=== PATIENT | male | born 1955 | race African-American/Black ===

== ENCOUNTER 2022-04-28 01:08 | Inpatient (IN) | payer MEDICARE, MEDICAID ==
[~2022-04-28] VITALS: Ht 180.3 cm; Wt 114.8 kg
[2022-04-28 05:09] LABS: BASOPHILS % 1.3 % (0.0-2.0); EOSINOPHILS % 6.3 % (0.0-5.0); HEMATOCRIT. 28.3 % (42.0-52.0); HEMOGLOBIN. 9.5 g/dL (14.0-18.0); LYMPHOCYTES % 16.2 % (20.0-50.0); MEAN CORPUSCULAR HEMOGLOBIN 29.2 pg (28.0-32.0); MEAN CORPUSCULAR VOLUME 87.1 fL (80.0-94.0); MEAN PLATELET VOLUME 8.1 fl (7.4-10.4); MONOCYTES % 6.6 % (2.0-8.0); NEUTROPHILS % 69.6 % (40.0-76.0); PLATELET 350 x1000/uL (130-400); RED BLOOD CELL COUNT 3.25 mill/uL (4.7-6.1); RED CELL DISTRIBUTION WIDTH 17.3 % (11.6-14.6)
[2022-04-28 05:16] LABS: INR 1.1; PROTHROMBIN TIME 12.1 sec (9.6-11.0)
[2022-04-28 05:18] LABS: CHLORIDE 94 mEq/L (98-107)
[2022-04-28] MEDS ORDERED: CLONIDINE 0.1MG TABLET PO PRN (10:15)
[2022-04-28] MEDS ORDERED: MAGNESIUM/ALUMINUM HYDROXIDE/SIMETHICONE 30ML UDC PO PRN (10:15)
[2022-04-28] MEDS ORDERED: DEXTROSE 50% WATER 50ML SYRINGE IV PRN ×2 (10:15)
[2022-04-28] MEDS ORDERED: ACETAMINOPHEN 325MG TABLET PO PRN (10:15)
[2022-04-28] MEDS ORDERED: ONDANSETRON HCL 4MG/2ML INJ IV PRN (10:15)
[2022-04-28] MEDS ORDERED: HYDROCODONE/ACETAMINOPHEN 5/325MG TABLET PO PRN (10:15)
[2022-04-28 10:45] VITALS: BP 112/73
[2022-04-28] MEDS ORDERED: NALOXONE HCL 0.4MG/ML VIAL IV PRN (10:45)
[2022-04-28] MEDS ORDERED: QUET25TA MT (11:37)
[2022-04-28] MEDS ORDERED: ARIP5TAB58 PO (11:37)
[2022-04-28] MEDS ORDERED: ATOR40TA70 MT (11:37)
[2022-04-28] MEDS ORDERED: LISI40TA13 PO (11:37)
[2022-04-28] MEDS ORDERED: GABA-529 PO (11:37)
[2022-04-28] MEDS ORDERED: METF500T60 PO (11:37)
[2022-04-28] MEDS ORDERED: TOPUD MT (11:37)
[2022-04-28] MEDS ORDERED: BACL-141 PO (11:37)
[2022-04-28 12:00] VITALS: BP 112/73
[2022-04-28] MEDS: ENOXAPARIN 30MG/0.3ML SYR SUBCUT SCH ×2 (12:05→21:27)
[2022-04-28] MEDS: BLOOD SUGAR DIAGNOSTIC STRIP TEST SCH ×3 (12:23→21:39)
[2022-04-28] MEDS: INSULIN LISPRO 100 UNITS/ML SUBCUT SCH ×3 (12:23→21:00)
[2022-04-28 13:43] VITALS: BP 112/73
[2022-04-28 16:00] VITALS: BP 125/93
[2022-04-28 21:00] VITALS: BP 137/88
[2022-04-28] MEDS: DEXT 5%/0.45% NACL 1000ML 1,000 ML IV SCH (21:44)
[2022-04-29 00:55] VITALS: BP 125/89
[2022-04-29 04:00] VITALS: BP 122/79
[2022-04-29] MEDS: BLOOD SUGAR DIAGNOSTIC STRIP TEST SCH ×4 (05:15→21:34)
[2022-04-29 05:24] LABS: INR 1.2; PROTHROMBIN TIME 12.3 sec (9.6-11.0)
[2022-04-29 06:24] LABS: BASOPHILS % 0.7 % (0.0-2.0); EOSINOPHILS % 5.5 % (0.0-5.0); HEMATOCRIT. 26.5 % (42.0-52.0); HEMOGLOBIN. 8.9 g/dL (14.0-18.0); LYMPHOCYTES % 22.9 % (20.0-50.0); MEAN CORPUSCULAR HEMOGLOBIN 28.9 pg (28.0-32.0); MEAN CORPUSCULAR VOLUME 86.2 fL (80.0-94.0); MEAN PLATELET VOLUME 8.9 fl (7.4-10.4); MONOCYTES % 9.4 % (2.0-8.0); NEUTROPHILS % 61.5 % (40.0-76.0); PLATELET 321 x1000/uL (130-400); RED BLOOD CELL COUNT 3.07 mill/uL (4.7-6.1); RED CELL DISTRIBUTION WIDTH 17.3 % (11.6-14.6)
[2022-04-29 08:00] VITALS: BP 132/90
[2022-04-29] MEDS: INSULIN LISPRO 100 UNITS/ML SUBCUT SCH ×3 (08:10→21:00)
[2022-04-29 08:34] LABS: CHLORIDE 99 mEq/L (98-107)
[2022-04-29] MEDS: PANTOPRAZOLE SODIUM 40 MG/VIAL IV SCH (08:34)
[2022-04-29] MEDS: ENOXAPARIN 30MG/0.3ML SYR SUBCUT SCH ×2 (09:00→21:33)
[2022-04-29 12:00] VITALS: BP 137/77
[2022-04-29] MEDS: MENTHOL/LANOLIN/CALAMINE/ZN OX OINT 71GM TOP SCH ×2 (12:00→16:42)
[2022-04-29] MEDS ORDERED: DIATR MEGLU/DIATRIZOATE SOLN 30ML PO SCH (15:45)
[2022-04-29 16:00] VITALS: BP 139/96
[2022-04-29] MEDS: DEXT 5%/0.45% NACL 1000ML 1,000 ML IV SCH (16:42)
[2022-04-29 20:00] VITALS: BP 148/66
[2022-04-30] VITALS: BP 134/78
[2022-04-30 03:29] LABS: BASOPHILS % 0.7 % (0.0-2.0); EOSINOPHILS % 12.6 % (0.0-5.0); HEMATOCRIT. 26.7 % (42.0-52.0); HEMOGLOBIN. 9.2 g/dL (14.0-18.0); LYMPHOCYTES % 27.1 % (20.0-50.0); MEAN CORPUSCULAR HEMOGLOBIN 29.6 pg (28.0-32.0); MEAN CORPUSCULAR VOLUME 85.7 fL (80.0-94.0); MEAN PLATELET VOLUME 8.2 fl (7.4-10.4); MONOCYTES % 9.9 % (2.0-8.0); NEUTROPHILS % 49.7 % (40.0-76.0); PLATELET 293 x1000/uL (130-400); RED BLOOD CELL COUNT 3.12 mill/uL (4.7-6.1); RED CELL DISTRIBUTION WIDTH 17.3 % (11.6-14.6)
[2022-04-30 03:46] LABS: INR 1.2; PROTHROMBIN TIME 12.3 sec (9.6-11.0)
[2022-04-30 04:00] VITALS: BP 138/80
[2022-04-30 04:19] LABS: CHLORIDE 98 mEq/L (98-107)
[2022-04-30] MEDS: DEXT 5%/0.45% NACL 1000ML 1,000 ML IV SCH ×2 (06:05→17:30)
[2022-04-30] MEDS: INSULIN LISPRO 100 UNITS/ML SUBCUT SCH ×4 (06:05→20:28)
[2022-04-30] MEDS: BLOOD SUGAR DIAGNOSTIC STRIP TEST SCH ×4 (06:05→20:28)
[2022-04-30 08:00] VITALS: BP 151/86
[2022-04-30] MEDS: PANTOPRAZOLE SODIUM 40 MG/VIAL IV SCH (08:38)
[2022-04-30] MEDS: MENTHOL/LANOLIN/CALAMINE/ZN OX OINT 71GM TOP SCH ×2 (08:39→17:29)
[2022-04-30] MEDS: ENOXAPARIN 30MG/0.3ML SYR SUBCUT SCH ×2 (09:00→20:28)
[2022-04-30] MEDS ORDERED: PROPOFOL 200MG/20ML VIAL IV ONE (10:34)
[2022-04-30] MEDS ORDERED: DEXAMETHASONE 4MG/ML 1ML VIAL ONE (10:34)
[2022-04-30] MEDS ORDERED: ONDANSETRON HCL 4MG/2ML INJ ONE (10:34)
[2022-04-30] MEDS ORDERED: MIDAZOLAM HCL 2 MG/2 ML VIAL ONE (10:36)
[2022-04-30] MEDS ORDERED: FENTANYL CITRATE/PF 50MCG/ML 2ML VIAL ONE (10:56)
[2022-04-30] MEDS ORDERED: CEFAZOLIN 1000MG PREMIX 50 ML IV NR (11:00)
[2022-04-30 15:58] VITALS: BP 118/85
[2022-04-30 20:00] VITALS: BP 118/88
[2022-05-01] VITALS: BP 114/81
[2022-05-01 04:00] VITALS: BP 128/78
[2022-05-01] MEDS: METOCLOPRAMIDE HCL 10MG/2ML VIAL IV SCH ×4 (05:43→23:29)
[2022-05-01] MEDS: DEXT 5%/0.45% NACL 1000ML 1,000 ML IV SCH ×2 (05:52→20:38)
[2022-05-01] MEDS: BLOOD SUGAR DIAGNOSTIC STRIP TEST SCH ×4 (07:01→20:38)
[2022-05-01] MEDS: INSULIN LISPRO 100 UNITS/ML SUBCUT SCH ×4 (07:28→20:38)
[2022-05-01 08:00] VITALS: BP 108/67
[2022-05-01] MEDS: PANTOPRAZOLE SODIUM 40 MG/VIAL IV SCH (08:25)
[2022-05-01] MEDS: ENOXAPARIN 30MG/0.3ML SYR SUBCUT SCH ×2 (08:25→20:38)
[2022-05-01] MEDS: MENTHOL/LANOLIN/CALAMINE/ZN OX OINT 71GM TOP SCH ×2 (08:25→17:11)
[2022-05-01 12:00] VITALS: BP 118/82
[2022-05-01 16:00] VITALS: BP 138/85
[2022-05-01 20:33] VITALS: BP 123/75
[2022-05-02] VITALS (8 sets, daily range): BP systolic 130–149; BP diastolic 79–94
[2022-05-02] MEDS: METOCLOPRAMIDE HCL 10MG/2ML VIAL IV SCH ×2 (05:17→11:34)
[2022-05-02] MEDS: BLOOD SUGAR DIAGNOSTIC STRIP TEST SCH ×4 (06:44→21:31)
[2022-05-02 06:59] LABS: BASOPHILS % 0.7 % (0.0-2.0); EOSINOPHILS % 7.5 % (0.0-5.0); HEMATOCRIT. 26.3 % (42.0-52.0); HEMOGLOBIN. 8.6 g/dL (14.0-18.0); LYMPHOCYTES % 30.7 % (20.0-50.0); MEAN CORPUSCULAR HEMOGLOBIN 28.8 pg (28.0-32.0); MEAN PLATELET VOLUME 8.9 fl (7.4-10.4); MONOCYTES % 9.6 % (2.0-8.0); NEUTROPHILS % 51.5 % (40.0-76.0); PLATELET 308 x1000/uL (130-400); RED BLOOD CELL COUNT 2.99 mill/uL (4.7-6.1); RED CELL DISTRIBUTION WIDTH 16.9 % (11.6-14.6)
[2022-05-02] MEDS: INSULIN LISPRO 100 UNITS/ML SUBCUT SCH ×4 (07:46→21:00)
[2022-05-02] MEDS: PANTOPRAZOLE SODIUM 40 MG/VIAL IV SCH (08:36)
[2022-05-02] MEDS: MENTHOL/LANOLIN/CALAMINE/ZN OX OINT 71GM TOP SCH ×2 (08:38→17:26)
[2022-05-02] MEDS: ENOXAPARIN 30MG/0.3ML SYR SUBCUT SCH ×2 (08:38→21:33)
[2022-05-02 09:32] LABS: CHLORIDE 103 mEq/L (98-107)
[2022-05-02] MEDS: DEXT 5%/0.45% NACL 1000ML 1,000 ML IV SCH ×2 (10:34→23:38)
[2022-05-03 04:50] VITALS: BP 135/84
[2022-05-03] MEDS: BLOOD SUGAR DIAGNOSTIC STRIP TEST SCH ×4 (06:20→20:21)
[2022-05-03] MEDS: INSULIN LISPRO 100 UNITS/ML SUBCUT SCH ×4 (07:48→20:21)
[2022-05-03 08:00] VITALS: BP 137/67
[2022-05-03] MEDS: MENTHOL/LANOLIN/CALAMINE/ZN OX OINT 71GM TOP SCH ×2 (08:58→16:57)
[2022-05-03] MEDS: LACTOBACILLUS GG CAPSULE PO SCH (08:59)
[2022-05-03] MEDS: ENOXAPARIN 30MG/0.3ML SYR SUBCUT SCH (08:59)
[2022-05-03 09:26] LABS: CHLORIDE 106 mEq/L (98-107)
[2022-05-03 11:57] VITALS: BP 133/93
[2022-05-03 12:56] LABS: HEMATOCRIT. 27.9 % (42.0-52.0); HEMOGLOBIN. 9.1 g/dL (14.0-18.0); MEAN CORPUSCULAR HEMOGLOBIN 28.7 pg (28.0-32.0); MEAN CORPUSCULAR VOLUME 88.3 fL (80.0-94.0); MEAN PLATELET VOLUME 8.7 fl (7.4-10.4); PLATELET 291 x1000/uL (130-400); RED BLOOD CELL COUNT 3.16 mill/uL (4.7-6.1); RED CELL DISTRIBUTION WIDTH 17.1 % (11.6-14.6)
[2022-05-03] MEDS: DEXT 5%/0.45% NACL 1000ML 1,000 ML IV SCH (13:19)
[2022-05-03 16:00] VITALS: BP 144/75
[2022-05-03 20:00] VITALS: BP 136/98
[2022-05-04 00:05] VITALS: BP 132/90
[2022-05-04] MEDS: DEXT 5%/0.45% NACL 1000ML 1,000 ML IV SCH ×2 (01:25→15:21)
[2022-05-04 04:00] VITALS: BP 144/97
[2022-05-04] MEDS: BLOOD SUGAR DIAGNOSTIC STRIP TEST SCH ×4 (05:28→20:36)
[2022-05-04] MEDS: INSULIN LISPRO 100 UNITS/ML SUBCUT SCH ×4 (05:28→20:36)
[2022-05-04 07:56] LABS: PLATELET ESTIMATE NORMAL
[2022-05-04] MEDS: ENOXAPARIN 40MG/0.4ML SYR SUBCUT SCH (08:37)
[2022-05-04] MEDS: MENTHOL/LANOLIN/CALAMINE/ZN OX OINT 71GM TOP SCH ×2 (08:37→16:33)
[2022-05-04] MEDS: LACTOBACILLUS GG CAPSULE PO SCH (08:37)
[2022-05-04 12:00] VITALS: BP 159/98
[2022-05-04 16:00] VITALS: BP 159/98
[2022-05-04 20:00] VITALS: BP 130/70
[2022-05-05 00:05] VITALS: BP 126/77
[2022-05-05] MEDS: DEXT 5%/0.45% NACL 1000ML 1,000 ML IV SCH ×2 (01:50→16:46)
[2022-05-05 04:00] VITALS: BP 141/89
[2022-05-05] MEDS: INSULIN LISPRO 100 UNITS/ML SUBCUT SCH ×4 (05:26→20:37)
[2022-05-05] MEDS: BLOOD SUGAR DIAGNOSTIC STRIP TEST SCH ×4 (05:26→20:37)
[2022-05-05 08:00] VITALS: BP 136/99
[2022-05-05] MEDS: ENOXAPARIN 40MG/0.4ML SYR SUBCUT SCH (08:01)
[2022-05-05] MEDS: MENTHOL/LANOLIN/CALAMINE/ZN OX OINT 71GM TOP SCH ×2 (08:01→16:47)
[2022-05-05] MEDS: LACTOBACILLUS GG CAPSULE PO SCH (08:01)
[2022-05-05 12:00] VITALS: BP 149/101
[2022-05-05 16:00] VITALS: BP 148/98
[2022-05-05 20:00] VITALS: BP 126/91
[2022-05-06 00:05] VITALS: BP 138/93
[2022-05-06 04:00] VITALS: BP 137/94
[2022-05-06] MEDS: INSULIN LISPRO 100 UNITS/ML SUBCUT SCH ×4 (05:22→21:00)
[2022-05-06] MEDS: BLOOD SUGAR DIAGNOSTIC STRIP TEST SCH ×4 (05:22→21:29)
[2022-05-06 08:00] VITALS: BP 119/75
[2022-05-06] MEDS: LACTOBACILLUS GG CAPSULE PO SCH (09:03)
[2022-05-06] MEDS: MENTHOL/LANOLIN/CALAMINE/ZN OX OINT 71GM TOP SCH ×2 (09:03→16:55)
[2022-05-06] MEDS: ENOXAPARIN 40MG/0.4ML SYR SUBCUT SCH (09:03)
[2022-05-06] MEDS: DEXT 5%/0.45% NACL 1000ML 1,000 ML IV SCH (09:04)
[2022-05-06 12:00] VITALS: BP 137/85
[2022-05-06 16:00] VITALS: BP 136/86
[2022-05-06 20:47] VITALS: BP 149/83
[2022-05-07 00:15] VITALS: BP 152/81
[2022-05-07] MEDS: DEXT 5%/0.45% NACL 1000ML 1,000 ML IV SCH ×2 (02:35→17:58)
[2022-05-07 04:00] VITALS: BP 163/94
[2022-05-07] MEDS: BLOOD SUGAR DIAGNOSTIC STRIP TEST SCH ×4 (06:01→21:44)
[2022-05-07] MEDS: INSULIN LISPRO 100 UNITS/ML SUBCUT SCH ×4 (06:01→21:00)
[2022-05-07 08:00] VITALS: BP 151/95
[2022-05-07] MEDS: LACTOBACILLUS GG CAPSULE PO SCH (09:15)
[2022-05-07] MEDS: MENTHOL/LANOLIN/CALAMINE/ZN OX OINT 71GM TOP SCH ×2 (09:15→17:55)
[2022-05-07] MEDS: ENOXAPARIN 40MG/0.4ML SYR SUBCUT SCH (09:15)
[2022-05-07 11:53] LABS: HEMATOCRIT. 26.8 % (42.0-52.0); MEAN CORPUSCULAR HEMOGLOBIN 29.4 pg (28.0-32.0); MEAN CORPUSCULAR VOLUME 87.7 fL (80.0-94.0); MEAN PLATELET VOLUME 9.5 fl (7.4-10.4); PLATELET 271 x1000/uL (130-400); RED BLOOD CELL COUNT 3.06 mill/uL (4.7-6.1); RED CELL DISTRIBUTION WIDTH 17.4 % (11.6-14.6)
[2022-05-07 12:00] VITALS: BP 151/89
[2022-05-07 12:37] LABS: CHLORIDE 100 mEq/L (98-107)
[2022-05-07 12:50] LABS: PLATELET ESTIMATE NORMAL
[2022-05-07 16:00] VITALS: BP 168/107
[2022-05-07 20:15] VITALS: BP 160/100
[2022-05-08 00:16] VITALS: BP 143/95
[2022-05-08 04:00] VITALS: BP 152/99
[2022-05-08] MEDS: BLOOD SUGAR DIAGNOSTIC STRIP TEST SCH ×4 (06:46→21:00)
[2022-05-08] MEDS: INSULIN LISPRO 100 UNITS/ML SUBCUT SCH ×5 (06:46→21:00)
[2022-05-08 07:23] LABS: HEMATOCRIT. 28.1 % (42.0-52.0); HEMOGLOBIN. 9.2 g/dL (14.0-18.0); MEAN CORPUSCULAR VOLUME 88.1 fL (80.0-94.0); MEAN PLATELET VOLUME 9.5 fl (7.4-10.4); PLATELET 272 x1000/uL (130-400); RED BLOOD CELL COUNT 3.18 mill/uL (4.7-6.1); RED CELL DISTRIBUTION WIDTH 17.4 % (11.6-14.6)
[2022-05-08 08:00] VITALS: BP 155/97
[2022-05-08] MEDS: DEXT 5%/0.45% NACL 1000ML 1,000 ML IV SCH ×2 (08:10→15:00)
[2022-05-08 08:58] LABS: CHLORIDE 102 mEq/L (98-107)
[2022-05-08] MEDS: LACTOBACILLUS GG CAPSULE PO SCH (09:48)
[2022-05-08] MEDS: ENOXAPARIN 40MG/0.4ML SYR SUBCUT SCH (09:49)
[2022-05-08] MEDS: MENTHOL/LANOLIN/CALAMINE/ZN OX OINT 71GM TOP SCH ×2 (09:49→17:00)
[2022-05-08 12:00] VITALS: BP 138/78
[2022-05-08 16:00] VITALS: BP 148/97
[2022-05-08 18:20] LABS: PLATELET ESTIMATE NORMAL
[2022-05-08 20:00] VITALS: BP 139/93
[2022-05-09] VITALS: BP 143/101
[2022-05-09] MEDS: DEXT 5%/0.45% NACL 1000ML 1,000 ML IV SCH ×2 (02:14→21:00)
[2022-05-09 04:00] VITALS: BP 152/99
[2022-05-09] MEDS: BLOOD SUGAR DIAGNOSTIC STRIP TEST SCH ×4 (07:40→20:35)
[2022-05-09 08:00] VITALS: BP 139/90
[2022-05-09] MEDS: INSULIN LISPRO 100 UNITS/ML SUBCUT SCH ×4 (08:10→20:35)
[2022-05-09] MEDS: MENTHOL/LANOLIN/CALAMINE/ZN OX OINT 71GM TOP SCH ×2 (09:00→17:00)
[2022-05-09] MEDS: ENOXAPARIN 40MG/0.4ML SYR SUBCUT SCH (10:22)
[2022-05-09] MEDS: LACTOBACILLUS GG CAPSULE PO SCH (10:22)
[2022-05-09 12:00] VITALS: BP 143/92
[2022-05-09 16:00] VITALS: BP 139/91
[2022-05-09 20:00] VITALS: BP 144/101
[2022-05-10] VITALS: BP 135/79
[2022-05-10 04:00] VITALS: BP 144/99
[2022-05-10] MEDS: DEXT 5%/0.45% NACL 1000ML 1,000 ML IV SCH (04:37)
[2022-05-10] MEDS: BLOOD SUGAR DIAGNOSTIC STRIP TEST SCH ×2 (07:46→12:42)
[2022-05-10 08:00] VITALS: BP 133/91
[2022-05-10] MEDS: INSULIN LISPRO 100 UNITS/ML SUBCUT SCH ×2 (08:10→12:43)
[2022-05-10] MEDS: ENOXAPARIN 40MG/0.4ML SYR SUBCUT SCH (08:45)
[2022-05-10] MEDS: LACTOBACILLUS GG CAPSULE PO SCH (08:46)
[2022-05-10] MEDS: MENTHOL/LANOLIN/CALAMINE/ZN OX OINT 71GM TOP SCH (08:46)
[2022-05-10 12:00] VITALS: BP 141/91
[2022-05-10 14:19] VITALS: BP 141/91
== END 2022-05-10 16:45 | DRG 919 ==
LOC: ER 01:08 → 7WST 05:14 → EDBEDREQ 05:18 → ENRESERV 07:00
PROVIDERS: ADMIT Family Medicine Adult Medicine; ATTEND Family Medicine Adult Medicine
PROC: 0D20XUZ Change Feeding Device in Upper Intestinal Tract, External Approach (ICD-10-PCS; principal; 2022-04-30)
PROC: 0DB78ZX Excision of Stomach, Pylorus, Via Natural or Artificial Opening Endoscopic, Diagnostic (ICD-10-PCS; 2022-04-30)
DX: T85.528A Displacement of other gastrointestinal prosthetic devices, implants and grafts, initial encounter (principal); N17.0 Acute kidney failure with tubular necrosis; E44.1 Mild protein-calorie malnutrition; E87.1 Hypo-osmolality and hyponatremia; R65.10 Systemic inflammatory response syndrome (SIRS) of non-infectious origin without acute organ dysfunction; N17.9 Acute kidney failure, unspecified; Y83.9 Surgical procedure, unspecified as the cause of abnormal reaction of the patient, or of later complication, without mention of misadventure at the time of the procedure; R13.12 Dysphagia, oropharyngeal phase; D72.829 Elevated white blood cell count, unspecified; K29.70 Gastritis, unspecified, without bleeding; I11.0 Hypertensive heart disease with heart failure; E11.9 Type 2 diabetes mellitus without complications; F03.90 Unspecified dementia, unspecified severity, without behavioral disturbance, psychotic disturbance, mood disturbance, and anxiety; I50.9 Heart failure, unspecified; G89.29 Other chronic pain; M10.9 Gout, unspecified; R19.7 Diarrhea, unspecified; M54.9 Dorsalgia, unspecified; Z20.822 Contact with and (suspected) exposure to COVID-19; Z79.899 Other long term (current) drug therapy; Z68.35 Body mass index [BMI] 35.0-35.9, adult
CPT/HCPCS: 36415; 74176; 76700; 80048; 80053; 82962; 83036; 84145; 85025; 87015; 87045; 87426; 87427; 87449; 87493; 88305; 89055; 93970; 99285; A6261; C9113; J0690; J1100; J1650; J1815; J2250; J2405; J2704; J2765; J3010; Q9963; A4315

== ENCOUNTER 2022-06-04 14:47 | Inpatient (IN) | payer MEDICARE, MEDICAID ==
[~2022-06-04] VITALS: Ht 175.3 cm; Wt 99.8 kg
[~2022-06-04 14:47] MED LIST: ARIP5TAB58 PO; ATOR40TA70 MT; BACL-141 PO; GABA-529 PO; LISI40TA13 PO; METF500T60 PO; QUET25TA MT; TOPUD MT
[2022-06-04] MEDS ORDERED: aspirin (14:50)
[2022-06-04] MEDS ORDERED: insulin (14:50)
[2022-06-04] MEDS ORDERED: SODIUM CHLORIDE 0.9% 1000ML BAG (SEPSIS BOLUS) IV ONE (15:15)
[2022-06-04 16:25] LABS: BASOPHILS % 0.5 % (0.0-2.0); EOSINOPHILS % 7.2 % (0.0-5.0); HEMATOCRIT. 33.6 % (42.0-52.0); HEMOGLOBIN. 10.6 g/dL (14.0-18.0); LYMPHOCYTES % 21.5 % (20.0-50.0); MEAN CORPUSCULAR HEMOGLOBIN 27.9 pg (28.0-32.0); MEAN CORPUSCULAR VOLUME 88.9 fL (80.0-94.0); MEAN PLATELET VOLUME 10.4 fl (7.4-10.4); MONOCYTES % 6.7 % (2.0-8.0); NEUTROPHILS % 64.1 % (40.0-76.0); PLATELET 311 x1000/uL (130-400); RED BLOOD CELL COUNT 3.78 mill/uL (4.7-6.1)
[2022-06-04 16:33] LABS: PROTHROMBIN TIME 11.1 sec (9.6-11.0)
[2022-06-04 16:41] LABS: CHLORIDE 111 mEq/L (98-107)
[2022-06-04 17:50] LABS: CLARITY URINE TURBID (CLEAR); COLOR URINE DARK YELLOW (YELLOW); KETONES URINE 1+ (NEGATIVE); LEUKOCYTE ESTERASE URINE 3+ (NEGATIVE); NITRITE URINE NEGATIVE (NEGATIVE); OCCULT BLOOD URINE 2+ (NEGATIVE); PROTEIN URINE 3+ (NEGATIVE); SPECIFIC GRAVITY URINE 1.023 (1.005-1.030)
[2022-06-04] MEDS ORDERED: IPRATROPIUM BROMIDE (0.02%) 0.5MG/2.5ML NEB HHN STA (17:56)
[2022-06-04 18:37] LABS: CREATINE KINASE 120 IU/L (39-308)
[2022-06-04] MEDS ORDERED: CEFTRIAXONE 1 G PREMIX 50 ML IV ONE (18:45)
[2022-06-04] MEDS: ALBUTEROL (0.083%) 2.5MG/3ML NEB HHN SCH (18:45)
[2022-06-04] MEDS ORDERED: LORAZEPAM 2MG/ML CPJ IV ONE (20:45)
[2022-06-05] VITALS (7 sets, daily range): BP systolic 101–117; BP diastolic 44–78
[2022-06-05] MEDS ORDERED: SODIUM CHLORIDE 0.9% 1,000 ML IV SCH (06:45)
[2022-06-05] MEDS ORDERED: HYDROCODONE/ACETAMINOPHEN 5/325MG TABLET PO PRN (06:45)
[2022-06-05] MEDS ORDERED: ACETAMINOPHEN 650MG/20.3ML UDC PO PRN (06:45)
[2022-06-05] MEDS ORDERED: CEFTRIAXONE 1 G PREMIX 50 ML IV SCH (06:45)
[2022-06-05] MEDS: ENOXAPARIN 30MG/0.3ML SYR SUBCUT SCH (09:00)
[2022-06-05] MEDS ORDERED: LORAZEPAM 2MG/ML CPJ IV NR (09:30)
[2022-06-05] MEDS ORDERED: SODIUM POLYSTYRENE SULFONATE 15 G/60 ML BOT PO NR (10:30)
[2022-06-05] MEDS ORDERED: NALOXONE HCL 0.4MG/ML VIAL IV PRN (10:30)
[2022-06-05] MEDS: DEXTROSE 5% WATER 1,000 ML IV SCH (12:10)
[2022-06-05] MEDS ORDERED: LORAZEPAM 2MG/ML CPJ IV SCH (14:44)
[2022-06-05 19:39] LABS: BASOPHILS % 0.6 % (0.0-2.0); HEMATOCRIT. 28.7 % (42.0-52.0); LYMPHOCYTES % 18.2 % (20.0-50.0); MEAN CORPUSCULAR HEMOGLOBIN 28.1 pg (28.0-32.0); MEAN CORPUSCULAR VOLUME 89.9 fL (80.0-94.0); MEAN PLATELET VOLUME 10.2 fl (7.4-10.4); MONOCYTES % 7.9 % (2.0-8.0); NEUTROPHILS % 65.3 % (40.0-76.0); PLATELET 246 x1000/uL (130-400); RED CELL DISTRIBUTION WIDTH 16.8 % (11.6-14.6)
[2022-06-05] MEDS: CEFEPIME 2,000 MG in DEXT 5% WATER 100 ML IV SCH (20:00)
[2022-06-05] MEDS ORDERED: CEFTRIAXONE 1,000 MG in DEXTROSE 5% WATER 50 ML IV SCH (20:00)
[2022-06-06] VITALS (7 sets, daily range): BP systolic 100–126; BP diastolic 69–85
[2022-06-06] MEDS: DEXTROSE 5% WATER 1,000 ML IV SCH ×2 (04:30→22:23)
[2022-06-06] MEDS: ACETAMINOPHEN 650MG/20.3ML UDC PO PRN (10:31)
[2022-06-06] MEDS: ENOXAPARIN 30MG/0.3ML SYR SUBCUT SCH (10:31)
[2022-06-06 12:01] LABS: BASOPHILS % 0.5 % (0.0-2.0); EOSINOPHILS % 7.8 % (0.0-5.0); HEMATOCRIT. 28.6 % (42.0-52.0); HEMOGLOBIN. 8.9 g/dL (14.0-18.0); LYMPHOCYTES % 14.9 % (20.0-50.0); MEAN CORPUSCULAR HEMOGLOBIN 27.9 pg (28.0-32.0); MEAN CORPUSCULAR VOLUME 89.8 fL (80.0-94.0); MEAN PLATELET VOLUME 10.5 fl (7.4-10.4); MONOCYTES % 7.5 % (2.0-8.0); NEUTROPHILS % 69.3 % (40.0-76.0); PLATELET 236 x1000/uL (130-400); RED BLOOD CELL COUNT 3.19 mill/uL (4.7-6.1); RED CELL DISTRIBUTION WIDTH 17.2 % (11.6-14.6)
[2022-06-06] MEDS ORDERED: NALOXONE HCL 0.4MG/ML VIAL IV PRN (13:45)
[2022-06-06] MEDS: CEFEPIME 2,000 MG in DEXT 5% WATER 100 ML IV SCH (22:23)
[2022-06-06 22:36] LABS: CREATINE KINASE 762 IU/L (39-308)
[2022-06-07] VITALS: BP 119/79
[2022-06-07 04:00] VITALS: BP 119/83
[2022-06-07 08:00] VITALS: BP 123/86
[2022-06-07] MEDS: ENOXAPARIN 40MG/0.4ML SYR SUBCUT SCH (08:55)
[2022-06-07 11:47] LABS: BASOPHILS % 0.6 % (0.0-2.0); HEMATOCRIT. 28.4 % (42.0-52.0); HEMOGLOBIN. 9.1 g/dL (14.0-18.0); LYMPHOCYTES % 24.1 % (20.0-50.0); MEAN CORPUSCULAR HEMOGLOBIN 28.1 pg (28.0-32.0); MEAN CORPUSCULAR VOLUME 88.1 fL (80.0-94.0); MEAN PLATELET VOLUME 10.4 fl (7.4-10.4); MONOCYTES % 7.7 % (2.0-8.0); NEUTROPHILS % 57.6 % (40.0-76.0); PLATELET 249 x1000/uL (130-400); RED BLOOD CELL COUNT 3.22 mill/uL (4.7-6.1); RED CELL DISTRIBUTION WIDTH 16.5 % (11.6-14.6)
[2022-06-07 12:00] VITALS: BP 118/89
[2022-06-07] MEDS: DEXTROSE 5% WATER 1,000 ML IV SCH (12:12)
[2022-06-07 16:00] VITALS: BP 142/74
[2022-06-07 20:00] VITALS: BP 114/86
[2022-06-07] MEDS: MEROPENEM 1,000 MG in SODIUM CHLORIDE 0.9% 100 ML IV SCH (21:09)
[2022-06-08] VITALS: BP 139/84
[2022-06-08] MEDS: MEROPENEM 1,000 MG in SODIUM CHLORIDE 0.9% 100 ML IV SCH ×3 (03:06→18:59)
[2022-06-08 04:00] VITALS: BP 138/90
[2022-06-08] MEDS: DEXTROSE 5% WATER 1,000 ML IV SCH (05:44)
[2022-06-08 08:00] VITALS: BP 131/93
[2022-06-08] MEDS: ENOXAPARIN 40MG/0.4ML SYR SUBCUT SCH (10:22)
[2022-06-08 12:00] VITALS: BP 113/71
[2022-06-08 12:45] LABS: BASOPHILS % 0.7 % (0.0-2.0); EOSINOPHILS % 11.7 % (0.0-5.0); HEMOGLOBIN. 9.3 g/dL (14.0-18.0); LYMPHOCYTES % 31.2 % (20.0-50.0); MEAN CORPUSCULAR HEMOGLOBIN 28.4 pg (28.0-32.0); MEAN CORPUSCULAR VOLUME 88.4 fL (80.0-94.0); MEAN PLATELET VOLUME 10.5 fl (7.4-10.4); MONOCYTES % 9.5 % (2.0-8.0); NEUTROPHILS % 46.9 % (40.0-76.0); PLATELET 254 x1000/uL (130-400); RED BLOOD CELL COUNT 3.29 mill/uL (4.7-6.1); RED CELL DISTRIBUTION WIDTH 16.7 % (11.6-14.6)
[2022-06-08 16:00] VITALS: BP 98/52
[2022-06-08 20:00] VITALS: BP_SYST 100
[2022-06-09] VITALS: BP 122/89
[2022-06-09] MEDS: MEROPENEM 1,000 MG in SODIUM CHLORIDE 0.9% 100 ML IV SCH ×3 (02:19→18:28)
[2022-06-09 04:00] VITALS: BP 127/60
[2022-06-09 07:20] LABS: BASOPHILS % 0.9 % (0.0-2.0); EOSINOPHILS % 12.8 % (0.0-5.0); HEMATOCRIT. 27.8 % (42.0-52.0); HEMOGLOBIN. 9.1 g/dL (14.0-18.0); LYMPHOCYTES % 29.2 % (20.0-50.0); MEAN CORPUSCULAR HEMOGLOBIN 28.5 pg (28.0-32.0); MEAN PLATELET VOLUME 10.3 fl (7.4-10.4); MONOCYTES % 8.3 % (2.0-8.0); NEUTROPHILS % 48.8 % (40.0-76.0); PLATELET 250 x1000/uL (130-400); RED CELL DISTRIBUTION WIDTH 16.2 % (11.6-14.6)
[2022-06-09 07:43] LABS: PHOSPHORUS 3.8 mg/dL (2.5-4.9)
[2022-06-09 08:00] VITALS: BP 120/78
[2022-06-09] MEDS: ENOXAPARIN 40MG/0.4ML SYR SUBCUT SCH (08:55)
[2022-06-09 12:00] VITALS: BP 120/92
[2022-06-09 16:00] VITALS: BP 123/86
[2022-06-09 20:00] VITALS: BP 123/92
[2022-06-10] VITALS: BP 110/78
[2022-06-10] MEDS: MEROPENEM 1,000 MG in SODIUM CHLORIDE 0.9% 100 ML IV SCH ×3 (03:14→18:00)
[2022-06-10 04:00] VITALS: BP 116/84
[2022-06-10 07:15] LABS: BASOPHILS % 0.9 % (0.0-2.0); EOSINOPHILS % 11.6 % (0.0-5.0); HEMATOCRIT. 31.3 % (42.0-52.0); HEMOGLOBIN. 9.9 g/dL (14.0-18.0); LYMPHOCYTES % 34.2 % (20.0-50.0); MEAN CORPUSCULAR VOLUME 88.4 fL (80.0-94.0); MEAN PLATELET VOLUME 10.8 fl (7.4-10.4); MONOCYTES % 8.4 % (2.0-8.0); NEUTROPHILS % 44.9 % (40.0-76.0); PLATELET 213 x1000/uL (130-400); RED BLOOD CELL COUNT 3.54 mill/uL (4.7-6.1); RED CELL DISTRIBUTION WIDTH 16.5 % (11.6-14.6)
[2022-06-10 08:00] VITALS: BP 115/82
[2022-06-10] MEDS: ENOXAPARIN 100MG/ML SYR SUBCUT SCH ×2 (09:20→21:18)
[2022-06-10 12:00] VITALS: BP 117/79
[2022-06-10 16:00] VITALS: BP 103/75
[2022-06-10 20:00] VITALS: BP 120/89
[2022-06-11] VITALS: BP 123/90
[2022-06-11] MEDS: MEROPENEM 1,000 MG in SODIUM CHLORIDE 0.9% 100 ML IV SCH ×3 (02:40→18:52)
[2022-06-11 04:00] VITALS: BP 124/90
[2022-06-11 07:39] LABS: BASOPHILS % 0.7 % (0.0-2.0); HEMATOCRIT. 32.6 % (42.0-52.0); HEMOGLOBIN. 10.6 g/dL (14.0-18.0); LYMPHOCYTES % 35.8 % (20.0-50.0); MEAN CORPUSCULAR HEMOGLOBIN 28.4 pg (28.0-32.0); MEAN CORPUSCULAR VOLUME 87.4 fL (80.0-94.0); MEAN PLATELET VOLUME 9.6 fl (7.4-10.4); NEUTROPHILS % 43.5 % (40.0-76.0); PLATELET 279 x1000/uL (130-400); RED BLOOD CELL COUNT 3.73 mill/uL (4.7-6.1); RED CELL DISTRIBUTION WIDTH 16.4 % (11.6-14.6)
[2022-06-11 08:00] VITALS: BP 139/90
[2022-06-11] MEDS: ENOXAPARIN 100MG/ML SYR SUBCUT SCH ×2 (08:53→21:10)
[2022-06-11] MEDS: DEXTROSE 5% WATER 1,000 ML IV SCH (10:09)
[2022-06-11 12:00] VITALS: BP_SYST 123; BP_SYST 128; BP_DIAS 90; BP_DIAS 95
[2022-06-11 16:00] VITALS: BP 115/80
[2022-06-11] MEDS ORDERED: ENOX40SY27 SQ (16:47)
[2022-06-11 20:00] VITALS: BP 115/85
[2022-06-12] VITALS: BP 124/72
[2022-06-12] MEDS: MEROPENEM 1,000 MG in SODIUM CHLORIDE 0.9% 100 ML IV SCH ×3 (02:49→18:35)
[2022-06-12 04:00] VITALS: BP 124/82
[2022-06-12 07:41] LABS: BASOPHILS % 0.8 % (0.0-2.0); EOSINOPHILS % 12.9 % (0.0-5.0); HEMATOCRIT. 33.9 % (42.0-52.0); LYMPHOCYTES % 37.7 % (20.0-50.0); MEAN CORPUSCULAR HEMOGLOBIN 28.4 pg (28.0-32.0); MEAN CORPUSCULAR VOLUME 87.4 fL (80.0-94.0); MONOCYTES % 7.7 % (2.0-8.0); NEUTROPHILS % 40.9 % (40.0-76.0); PLATELET 257 x1000/uL (130-400); RED BLOOD CELL COUNT 3.88 mill/uL (4.7-6.1); RED CELL DISTRIBUTION WIDTH 16.4 % (11.6-14.6)
[2022-06-12 07:52] LABS: CHLORIDE 113 mEq/L (98-107)
[2022-06-12 08:00] VITALS: BP 121/86
[2022-06-12] MEDS: ENOXAPARIN 100MG/ML SYR SUBCUT SCH (09:43)
[2022-06-12] MEDS: DEXTROSE 5% WATER 1,000 ML IV SCH (09:46)
[2022-06-12 12:00] VITALS: BP 113/74
[2022-06-12 16:00] VITALS: BP_SYST 138; BP_SYST 142; BP_DIAS 89; BP_DIAS 94
[2022-06-12 20:00] VITALS: BP 131/91
[2022-06-12] MEDS: ENOXAPARIN 120MG/0.8ML SYR SUBCUT SCH (21:37)
[2022-06-13] VITALS: BP 129/96
[2022-06-13] MEDS: MEROPENEM 1,000 MG in SODIUM CHLORIDE 0.9% 100 ML IV SCH ×3 (03:13→18:25)
[2022-06-13 04:00] VITALS: BP 124/95
[2022-06-13 08:25] VITALS: BP 108/68
[2022-06-13] MEDS: ENOXAPARIN 120MG/0.8ML SYR SUBCUT SCH ×2 (09:07→20:59)
[2022-06-13 12:00] VITALS: BP 110/73
[2022-06-13 16:00] VITALS: BP 104/75
[2022-06-13] MEDS: DEXTROSE 5% WATER 1,000 ML IV SCH (18:28)
[2022-06-13 20:00] VITALS: BP 131/89
[2022-06-14] VITALS (7 sets, daily range): BP systolic 114–126; BP diastolic 78–90
[2022-06-14] MEDS: MEROPENEM 1,000 MG in SODIUM CHLORIDE 0.9% 100 ML IV SCH ×3 (02:37→19:29)
[2022-06-14] MEDS: ACETAMINOPHEN 650MG/20.3ML UDC PO PRN ×2 (02:37→12:43)
[2022-06-14] MEDS ORDERED: CEFTRIAXONE 1 G PREMIX 50 ML IV ONE (03:30)
[2022-06-14] MEDS ORDERED: SODIUM CHLORIDE 0.9% 500 ML IV ONE (03:30)
[2022-06-14] MEDS ORDERED: CEFTRIAXONE 1,000 MG in DEXTROSE 5% WATER 50 ML IV SCH (05:00)
[2022-06-14] MEDS: DEXTROSE 5% WATER 1,000 ML IV SCH (09:00)
[2022-06-14] MEDS: ENOXAPARIN 120MG/0.8ML SYR SUBCUT SCH (09:54)
[2022-06-14 11:21] LABS: BASOPHILS % 1.2 % (0.0-2.0); EOSINOPHILS % 4.7 % (0.0-5.0); HEMATOCRIT. 31.9 % (42.0-52.0); HEMOGLOBIN. 10.4 g/dL (14.0-18.0); LYMPHOCYTES % 19.3 % (20.0-50.0); MEAN CORPUSCULAR HEMOGLOBIN 28.5 pg (28.0-32.0); MEAN CORPUSCULAR VOLUME 87.8 fL (80.0-94.0); MEAN PLATELET VOLUME 11.1 fl (7.4-10.4); NEUTROPHILS % 64.8 % (40.0-76.0); PLATELET 182 x1000/uL (130-400); RED BLOOD CELL COUNT 3.64 mill/uL (4.7-6.1); RED CELL DISTRIBUTION WIDTH 17.4 % (11.6-14.6)
[2022-06-14] MEDS: APIXABAN 5 MG TABLET PO SCH (17:46)
[2022-06-15] VITALS: BP 119/86
[2022-06-15] MEDS: DEXTROSE 5% WATER 1,000 ML IV SCH ×2 (06:34→09:50)
[2022-06-15 07:43] LABS: BASOPHILS % 0.9 % (0.0-2.0); EOSINOPHILS % 3.9 % (0.0-5.0); HEMATOCRIT. 30.6 % (42.0-52.0); HEMOGLOBIN. 9.9 g/dL (14.0-18.0); LYMPHOCYTES % 26.1 % (20.0-50.0); MEAN CORPUSCULAR VOLUME 86.9 fL (80.0-94.0); MEAN PLATELET VOLUME 10.9 fl (7.4-10.4); NEUTROPHILS % 58.1 % (40.0-76.0); PLATELET 159 x1000/uL (130-400); RED BLOOD CELL COUNT 3.53 mill/uL (4.7-6.1); RED CELL DISTRIBUTION WIDTH 17.3 % (11.6-14.6)
[2022-06-15 08:00] VITALS: BP 115/81
[2022-06-15] MEDS: APIXABAN 5 MG TABLET PO SCH ×2 (09:49→17:32)
[2022-06-15 12:00] VITALS: BP 116/71
[2022-06-15 16:00] VITALS: BP 118/79
[2022-06-15 18:09] VITALS: BP 118/79
[2022-06-15 20:00] VITALS: BP 127/78
[2022-06-16] VITALS: BP 125/82
[2022-06-16 04:00] VITALS: BP 110/87
[2022-06-16 08:00] VITALS: BP 117/88
[2022-06-16] MEDS: APIXABAN 5 MG TABLET PO SCH ×2 (09:43→16:55)
[2022-06-16 12:00] VITALS: BP 118/82
[2022-06-16 16:00] VITALS: BP 110/72
[2022-06-16 20:00] VITALS: BP 121/82
[2022-06-17] VITALS: BP 118/81
[2022-06-17 04:00] VITALS: BP 134/87
[2022-06-17 06:58] LABS: BASOPHILS % 0.8 % (0.0-2.0); EOSINOPHILS % 7.9 % (0.0-5.0); HEMATOCRIT. 27.2 % (42.0-52.0); LYMPHOCYTES % 38.4 % (20.0-50.0); MEAN CORPUSCULAR HEMOGLOBIN 28.5 pg (28.0-32.0); MEAN CORPUSCULAR VOLUME 85.7 fL (80.0-94.0); MEAN PLATELET VOLUME 11.1 fl (7.4-10.4); NEUTROPHILS % 44.9 % (40.0-76.0); PLATELET 150 x1000/uL (130-400); RED BLOOD CELL COUNT 3.17 mill/uL (4.7-6.1); RED CELL DISTRIBUTION WIDTH 16.5 % (11.6-14.6)
[2022-06-17 08:00] VITALS: BP 130/83
[2022-06-17] MEDS: DEXTROSE 5% WATER 1,000 ML IV SCH (09:16)
[2022-06-17] MEDS: APIXABAN 5 MG TABLET PO SCH ×2 (09:16→17:30)
[2022-06-17 09:30] LABS: CHLORIDE 110 mEq/L (98-107)
[2022-06-17 12:00] VITALS: BP 133/89
[2022-06-17 16:00] VITALS: BP 117/86
[2022-06-17 20:00] VITALS: BP 139/68
[2022-06-18] VITALS: BP 124/82
[2022-06-18 04:00] VITALS: BP 139/68
[2022-06-18 08:00] VITALS: BP 120/79
[2022-06-18] MEDS: APIXABAN 5 MG TABLET PO SCH ×2 (08:23→16:52)
[2022-06-18] MEDS: DEXTROSE 5% WATER 1,000 ML IV SCH (08:24)
[2022-06-18 12:00] VITALS: BP 130/91
[2022-06-18 16:00] VITALS: BP 140/90
[2022-06-18 20:00] VITALS: BP 137/89
[2022-06-19] VITALS: BP 127/86
[2022-06-19 04:00] VITALS: BP_SYST 127; BP_SYST 147; BP_DIAS 86; BP_DIAS 92
[2022-06-19 07:47] LABS: BASOPHILS % 0.4 % (0.0-2.0); EOSINOPHILS % 5.4 % (0.0-5.0); HEMATOCRIT. 28.3 % (42.0-52.0); HEMOGLOBIN. 9.2 g/dL (14.0-18.0); LYMPHOCYTES % 31.2 % (20.0-50.0); MEAN CORPUSCULAR HEMOGLOBIN 27.9 pg (28.0-32.0); MEAN CORPUSCULAR VOLUME 85.7 fL (80.0-94.0); MEAN PLATELET VOLUME 10.7 fl (7.4-10.4); MONOCYTES % 7.6 % (2.0-8.0); NEUTROPHILS % 55.4 % (40.0-76.0); PLATELET 194 x1000/uL (130-400); RED CELL DISTRIBUTION WIDTH 17.1 % (11.6-14.6)
[2022-06-19 08:00] VITALS: BP 129/87
[2022-06-19] MEDS: APIXABAN 5 MG TABLET PO SCH ×2 (09:37→20:46)
[2022-06-19 12:00] VITALS: BP 119/80
[2022-06-19 16:00] VITALS: BP 118/88
[2022-06-19 20:00] VITALS: BP 125/88
[2022-06-20] VITALS: BP 108/55
[2022-06-20 04:00] VITALS: BP 117/89
[2022-06-20 08:00] VITALS: BP 134/82
[2022-06-20] MEDS: APIXABAN 5 MG TABLET PO SCH ×2 (08:54→19:10)
[2022-06-20 12:00] VITALS: BP 114/80
[2022-06-20 16:00] VITALS: BP 129/82
[2022-06-20 20:00] VITALS: BP 117/84
[2022-06-21] VITALS: BP 130/80
[2022-06-21 04:00] VITALS: BP 127/86
[2022-06-21 08:00] VITALS: BP 123/85
[2022-06-21 09:02] LABS: BASOPHILS % 0.3 % (0.0-2.0); EOSINOPHILS % 9.6 % (0.0-5.0); HEMATOCRIT. 30.4 % (42.0-52.0); HEMOGLOBIN. 10.1 g/dL (14.0-18.0); MEAN CORPUSCULAR HEMOGLOBIN 28.7 pg (28.0-32.0); MEAN CORPUSCULAR VOLUME 86.1 fL (80.0-94.0); MEAN PLATELET VOLUME 10.2 fl (7.4-10.4); NEUTROPHILS % 52.1 % (40.0-76.0); PLATELET 260 x1000/uL (130-400); RED BLOOD CELL COUNT 3.53 mill/uL (4.7-6.1); RED CELL DISTRIBUTION WIDTH 17.2 % (11.6-14.6)
[2022-06-21] MEDS: APIXABAN 5 MG TABLET PO SCH ×2 (09:07→19:25)
[2022-06-21 09:20] LABS: CHLORIDE 108 mEq/L (98-107)
[2022-06-21 12:00] VITALS: BP 123/85
[2022-06-21 16:00] VITALS: BP 128/91
[2022-06-21 20:00] VITALS: BP 117/85
[2022-06-22] VITALS (7 sets, daily range): BP systolic 109–117; BP diastolic 74–87
[2022-06-22 07:13] LABS: BASOPHILS % 0.5 % (0.0-2.0); EOSINOPHILS % 11.5 % (0.0-5.0); HEMATOCRIT. 31.2 % (42.0-52.0); HEMOGLOBIN. 10.2 g/dL (14.0-18.0); LYMPHOCYTES % 31.6 % (20.0-50.0); MEAN CORPUSCULAR HEMOGLOBIN 27.8 pg (28.0-32.0); MEAN CORPUSCULAR VOLUME 85.2 fL (80.0-94.0); MEAN PLATELET VOLUME 10.3 fl (7.4-10.4); MONOCYTES % 7.3 % (2.0-8.0); NEUTROPHILS % 49.1 % (40.0-76.0); PLATELET 293 x1000/uL (130-400); RED BLOOD CELL COUNT 3.66 mill/uL (4.7-6.1); RED CELL DISTRIBUTION WIDTH 17.4 % (11.6-14.6)
[2022-06-22 07:15] LABS: CHLORIDE 110 mEq/L (98-107)
[2022-06-22] MEDS: APIXABAN 5 MG TABLET PO SCH ×2 (08:57→16:43)
[2022-06-23] VITALS: BP 138/91
[2022-06-23 04:00] VITALS: BP 116/90
[2022-06-23 07:36] LABS: BASOPHILS % 0.5 % (0.0-2.0); HEMOGLOBIN. 10.1 g/dL (14.0-18.0); LYMPHOCYTES % 31.5 % (20.0-50.0); MEAN CORPUSCULAR HEMOGLOBIN 27.4 pg (28.0-32.0); MEAN CORPUSCULAR VOLUME 86.9 fL (80.0-94.0); MEAN PLATELET VOLUME 9.9 fl (7.4-10.4); MONOCYTES % 6.9 % (2.0-8.0); NEUTROPHILS % 49.1 % (40.0-76.0); PLATELET 307 x1000/uL (130-400); RED BLOOD CELL COUNT 3.69 mill/uL (4.7-6.1); RED CELL DISTRIBUTION WIDTH 17.6 % (11.6-14.6)
[2022-06-23 07:43] LABS: CHLORIDE 110 mEq/L (98-107)
[2022-06-23 08:00] VITALS: BP 126/86
[2022-06-23] MEDS: APIXABAN 5 MG TABLET PO SCH ×2 (08:43→17:07)
[2022-06-23 12:00] VITALS: BP 129/86
[2022-06-23 16:00] VITALS: BP 120/80
[2022-06-23 20:00] VITALS: BP 130/89
[2022-06-24] VITALS: BP 115/85
[2022-06-24 04:00] VITALS: BP 133/86
[2022-06-24 07:52] LABS: BASOPHILS % 0.4 % (0.0-2.0); EOSINOPHILS % 10.3 % (0.0-5.0); HEMATOCRIT. 31.3 % (42.0-52.0); HEMOGLOBIN. 10.2 g/dL (14.0-18.0); LYMPHOCYTES % 27.4 % (20.0-50.0); MEAN CORPUSCULAR VOLUME 85.8 fL (80.0-94.0); MEAN PLATELET VOLUME 9.6 fl (7.4-10.4); MONOCYTES % 6.7 % (2.0-8.0); NEUTROPHILS % 55.2 % (40.0-76.0); PLATELET 327 x1000/uL (130-400); RED BLOOD CELL COUNT 3.64 mill/uL (4.7-6.1); RED CELL DISTRIBUTION WIDTH 17.7 % (11.6-14.6)
[2022-06-24 08:00] VITALS: BP 127/89
[2022-06-24 08:07] LABS: CHLORIDE 109 mEq/L (98-107)
[2022-06-24] MEDS: APIXABAN 5 MG TABLET PO SCH ×2 (08:34→17:22)
[2022-06-24 12:20] VITALS: BP 155/68
[2022-06-24 16:18] VITALS: BP 124/80
[2022-06-24 20:00] VITALS: BP 123/79
[2022-06-25] VITALS: BP 129/91
[2022-06-25 04:00] VITALS: BP 129/86
[2022-06-25 08:00] VITALS: BP 136/65
[2022-06-25] MEDS: APIXABAN 5 MG TABLET PO SCH ×2 (08:26→17:56)
[2022-06-25 12:00] VITALS: BP 121/94
[2022-06-25 16:00] VITALS: BP 122/95
[2022-06-25 20:00] VITALS: BP 125/97
== END 2022-06-25 22:46 | DRG 853 ==
LOC: ER 14:47 → MICUSO 19:45 → EDBEDREQSVC 19:47 → EDBEDREQTM 19:47 → EDBEDREQ 19:47 → ENRESERV 23:09 → 7EST 06-05 03:16 → UNDODISIN 06-15 13:45
PROVIDERS: ADMIT Family Medicine Adult Medicine; ATTEND Family Medicine Adult Medicine
PROC: 0JB70ZZ Excision of Back Subcutaneous Tissue and Fascia, Open Approach (ICD-10-PCS; principal; 2022-06-20)
DX: A41.9 Sepsis, unspecified organism (principal); L89.153 Pressure ulcer of sacral region, stage 3; U07.1 COVID-19; E87.0 Hyperosmolality and hypernatremia; N17.9 Acute kidney failure, unspecified; N39.0 Urinary tract infection, site not specified; I82.401 Acute embolism and thrombosis of unspecified deep veins of right lower extremity; E11.22 Type 2 diabetes mellitus with diabetic chronic kidney disease; I12.9 Hypertensive chronic kidney disease with stage 1 through stage 4 chronic kidney disease, or unspecified chronic kidney disease; E87.5 Hyperkalemia; R80.9 Proteinuria, unspecified; D64.9 Anemia, unspecified; R13.10 Dysphagia, unspecified; N18.9 Chronic kidney disease, unspecified; Z86.73 Personal history of transient ischemic attack (TIA), and cerebral infarction without residual deficits; Z74.01 Bed confinement status; Z79.1 Long term (current) use of non-steroidal anti-inflammatories (NSAID); Z79.899 Other long term (current) drug therapy; Z79.4 Long term (current) use of insulin; Z78.1 Physical restraint status
CPT/HCPCS: 36415; 71045; 76770; 80048; 80053; 81003; 82550; 82962; 83605; 83735; 84100; 84145; 84484; 85025; 86850; 86900; 87077; 87106; 87186; 87426; 87804; 92610; 93005; 93970; 97162; 99291; C1893; J0692; J0696; J1650; J2060; J2185; J7030; J7050; J7060; J7070

== ENCOUNTER 2023-04-04 10:13 | Emergency (ER) | payer MEDICARE, MEDICAID ==
[~2023-04-04] VITALS: Ht 182.9 cm; Wt 93.5 kg
[~2023-04-04 10:13] MED LIST changes: +ENOX40SY27 SQ; -LISI40TA13 PO; -METF500T60 PO
[2023-04-04 10:23] VITALS: O2SAT 92
[2023-04-04] MEDS ORDERED: DIATR MEGLU/DIATRIZOATE SOLN 30ML PO ONE (11:30)
[2023-04-04 14:27] VITALS: BP 133/85; PULSE 77; RESP 17; TEMP 98.2
== END 2023-04-04 14:51 | disposition home or self-care (01) ==
LOC: ER 10:13
DX: K94.23 Gastrostomy malfunction (principal); I11.0 Hypertensive heart disease with heart failure; I50.9 Heart failure, unspecified; D64.9 Anemia, unspecified; R13.10 Dysphagia, unspecified; F03.90 Unspecified dementia, unspecified severity, without behavioral disturbance, psychotic disturbance, mood disturbance, and anxiety; Z87.01 Personal history of pneumonia (recurrent); Z86.73 Personal history of transient ischemic attack (TIA), and cerebral infarction without residual deficits; Z79.899 Other long term (current) drug therapy
CPT/HCPCS: 99284; 74018; Q9963

== ENCOUNTER 2024-07-26 20:23 | Emergency (ER) | payer MEDICARE, MEDICAID ==
[~2024-07-26] VITALS: Ht 172.7 cm; Wt 60.0 kg
[~2024-07-26 20:23] MED LIST changes: +ARIP2TAB66 PO; -ARIP5TAB58 PO; -BACL-141 PO; +CARV12.545 PO; -ENOX40SY27 SQ; -QUET25TA MT; -TOPUD MT
[2024-07-26 20:40] VITALS: TEMP 36.7; O2SAT 96
[2024-07-26 22:17] VITALS: BP 124/81; PULSE 91; RESP 18; O2SAT 97
== END 2024-07-26 22:20 | disposition home or self-care (01) ==
LOC: ER 20:23
DX: K94.23 Gastrostomy malfunction (principal); E11.9 Type 2 diabetes mellitus without complications; F03.90 Unspecified dementia, unspecified severity, without behavioral disturbance, psychotic disturbance, mood disturbance, and anxiety; E78.00 Pure hypercholesterolemia, unspecified; I11.0 Hypertensive heart disease with heart failure; I50.9 Heart failure, unspecified; Z86.73 Personal history of transient ischemic attack (TIA), and cerebral infarction without residual deficits; Z79.899 Other long term (current) drug therapy
CPT/HCPCS: 43762; 99284

== ENCOUNTER 2024-07-27 14:53 | Emergency (ER) | payer MEDICARE, MEDICAID ==
[~2024-07-27] VITALS: Ht 175.3 cm; Wt 73.0 kg
[2024-07-27 14:55] VITALS: TEMP 37.3; O2SAT 100
[2024-07-27] MEDS: DIATR MEGLU/DIATRIZOATE SOLN 30ML ONE (16:46)
[2024-07-27 20:41] VITALS: BP 125/81; PULSE 91; RESP 20; O2SAT 97
== END 2024-07-27 21:15 ==
LOC: ER 14:53
DX: K94.23 Gastrostomy malfunction (principal); E11.9 Type 2 diabetes mellitus without complications; E78.00 Pure hypercholesterolemia, unspecified; F03.90 Unspecified dementia, unspecified severity, without behavioral disturbance, psychotic disturbance, mood disturbance, and anxiety; I11.0 Hypertensive heart disease with heart failure; I50.9 Heart failure, unspecified; Z86.73 Personal history of transient ischemic attack (TIA), and cerebral infarction without residual deficits; Z79.899 Other long term (current) drug therapy
CPT/HCPCS: 99285; 43762; 74018; Q9963; A4663; A4606